=== PATIENT | male | born 1950 | race Caucasian/White ===

== ENCOUNTER 2017-08-13 11:54 | Emergency (ER) | payer OTHER, BC ==
[2017-08-13] MEDS ORDERED: Lidocaine 1% 20 ML MDV INJECT ONE (11:55)
--- NOTE | 2017-08-13 12:31 | EDM.PDOC ---
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 There is minor pain and bleeding. His tetanus vax status is unknown. Right 1-Thumb Pain Score (Numeric/FACES): 0 - Related Data Allergies Allergy/AdvReac Type Severity Reaction Status Date / Time No Known Allergies Allergy Verified 11/20/14 22:56 Home Meds: Home Meds Aspirin 325 mg PO DAILY 08/13/17 [History] Omeprazole 20 mg PO DAILY 08/13/17 [History] atorvaSTATin [Lipitor] 40 mg PO DAILY 08/13/17 [History] Past Medical History Cardiovascular History: Reports: High Cholesterol Gastrointestinal History: Reports: GERD Musculoskeletal History: Reports: Arthritis Neurological History: Reports: CVA - Past Surgical History Cardiovascular Surgical History: Reports: Carotid Stents Social & Family History - Family History Family Medical History: Noncontributory - Tobacco Use Smoking Status *Q: Current Every Day Smoker Years of Tobacco use: 45 - Alcohol Use Days Per Week of Alcohol Use: 0 - Recreational Drug Use Recreational Drug Use: No ED ROS GENERAL - Review of Systems Review Of Systems: ROS reveals no pertinent complaints other than HPI. ED EXAM, SKIN/RASH Exam: See Below Exam Limited By: No Limitations General Appearance: Alert, WD/WN, No Apparent Distress Head: Normocephalic Neck: Normal Inspection, Supple Respiratory/Chest: Lungs Clear Cardiovascular: Regular Rate, Rhythm Back Exam: Normal Inspection Extremities: Normal Range of Motion, Other (flap type 1.5 cm laceration to volar thumb pad) Neurological: Alert, Oriented, CN II-XII Intact, Normal Gait, No Motor/Sensory Deficits Psychiatric: Normal Affect, Normal Mood Skin: Warm, Dry, Other (1.5 cm laceration to L thumb) ED SKIN PROCEDURES - Laceration/Wound Repair Left Distal Ventral Finger Lac/Wound length In cm: 1.5 (volar thumb) Appearance: Subcutaneous, Other (flap type) Distal NVT: Neuro & Vascular Intact, No Tendon Injury Anesthetic Type: Local Local Anesthesia - Lidocaine (Xylocaine): 1% Plain Local Anesthetic Volume: 3cc Skin Prep: Chlorhexidine (Hibiciens) Exploration/Debridement/Repair: Wound Explored, No Foreign Material Found Closed with: Sutures Suture Size: 4-0 # of Sutures: 4 Suture Type: Nylon, Interrupted, Simple Drain Placement: No Sterile Dressing Applied: Nurse Tetanus Status Addressed: Yes Complications: No Course - Vital Signs Text/Narrative:: Patient tolerated procedure well. He was administered a Fluvax and adult DT vaccination before discharge. Last Recorded V/S: Last Vital Signs Temp 36.6 C 08/13/17 12:02 Pulse 74 08/13/17 13:15 Resp 15 08/13/17 13:15 BP 138/72 08/13/17 13:15 Pulse Ox 100 08/13/17 13:15 - Orders/Labs/Meds Orders: Active Orders 24 hr Category Date Time Status Vaccines to be Administered [RC] PER UNIT ROUTINE Care 08/13/17 12:34 Active Meds: Medications Discontinued Medications Generic Name Dose Route Start Last Admin Trade Name Ebonie PRN Reason Stop Dose Admin Influenza Virus Vaccine 60 mcg 08/13/17 12:33 08/13/17 12:47 Fluzone Quad [id number] IM 08/13/17 12:34 60 mcg .ONCE ONE Administration Tetanus/Diphtheria Toxoids 0.5 ml 08/13/17 12:34 08/13/17 13:04 Tenivac IM 08/13/17 12:35 0.5 ml .ONCE ONE Administration Departure - Departure Time of Disposition: 12:40 Disposition: Home, Self-Care 01 Condition: Good Clinical Impression: Laceration of thumb Qualifiers: Encounter type: initial encounter Damage to nail status: without damage Foreign body presence: without foreign body Laterality: left Qualified Code(s): S61.012A - Laceration without foreign body of left thumb without damage to nail , initial encounter - Discharge Information Instructions: Laceration Care, Adult, Wound Infection, [id number] Referrals: PCP,None [Primary Care Provider] - Forms: ED Department Discharge - Problem List & Annotations (1) Laceration of thumb SNOMED Code(s): 337829203 Code(s): S61.019A - LACERATION W/O FOREIGN BODY OF THMB W/O DAMAGE TO NAIL, INIT Status: Acute Annotation/Comment:: Routine wound cares, and suture removal in 10 days. Qualifiers: Encounter type: initial encounter Damage to nail status: without damage Foreign body presence: without foreign body Laterality: left Qualified Code( s): S61.012A - Laceration without foreign body of left thumb without damage to nail, initial encounter - Problem List Review Problem List Initiated/Reviewed/Updated: Yes - My Orders Last 24 Hours: My Active Orders 08/13/17 12:34 Vaccines to be Administered [RC] PER UNIT ROUTINE - Assessment/Plan Last 24 Hours: My Active Orders 08/13/17 12:34 Vaccines to be Administered [RC] PER UNIT ROUTINE Plan: Follow up with PCP.
[2017-08-13] MEDS ORDERED: FLU Vacc QS 2017-18 (36mos UP)/PF 60 MCG/0.5 ML Syringe IM ONE (12:33)
[2017-08-13] MEDS ORDERED: Diphtheria/Tetanus Toxoids,Adult (Td) 0.5 ML SDV IM ONE (12:34)
[2017-08-13 13:37] VITALS: BP 138/72
== END 2017-08-13 13:24 | disposition home or self-care (01) ==
LOC: FB.ED 11:54
DX: S61.012A Laceration without foreign body of left thumb without damage to nail, initial encounter (principal); E78.00 Pure hypercholesterolemia, unspecified; K21.9 Gastro-esophageal reflux disease without esophagitis; F17.210 Nicotine dependence, cigarettes, uncomplicated; Z79.82 Long term (current) use of aspirin; Z79.899 Other long term (current) drug therapy; W45.8XXA Other foreign body or object entering through skin, initial encounter; Y93.89 Activity, other specified; Y99.0 Civilian activity done for income or pay; Z23 Encounter for immunization
CPT/HCPCS: 12001; 90471; 90472; 90686; 90714; 99282; G0008

== ENCOUNTER 2017-08-22 12:29 | Emergency (ER) | payer OTHER, BC ==
--- NOTE | 2017-09-10 17:01 | ER ---
DATE SEEN: 08/22/2017 The patient is status post 9-day laceration to left hand after having experienced a laceration at the [facility]. This was sutured closed by Dr. Boogie. The laceration was 1.5 cm in the left thumb. The wound has healed nicely. Sutures removed. The patient is to follow up with his doctor as needed. Keep clean. DIAGNOSIS: Left thumb laceration, 1.5 cm in length, single-layer closure, healing and wound was fine. /[id number] RODERICK/YANELI
== END 2017-08-22 13:00 | disposition home or self-care (01) ==
LOC: FB.ED 12:29 → EDSTATUS 12:29 → FB.ED 13:00
DX: S61.012D Laceration without foreign body of left thumb without damage to nail, subsequent encounter (principal); X58.XXXD Exposure to other specified factors, subsequent encounter
CPT/HCPCS: 99281

== ENCOUNTER 2024-12-14 09:36 | Day surgery (SDC) | payer BC, MEDICARE, OTHER ==
[2024-12-14] MEDS ORDERED: Midazolam 1 MG/ML 2 ML SDV IV ONE (09:37)
[2024-12-14] MEDS ORDERED: fentaNYL 100 MCG/2 ML SDV IV ONE (09:37)
[2024-12-14] MEDS ORDERED: Lactated Ringers 1,000 ML IV PRN (09:45)
[2024-12-14] MEDS ORDERED: Sodium Chloride 0.9% 10 ML Syringe FLUSH PRN (09:45)
[2024-12-14] MEDS: acetaZOLAMIDE 500 MG Cap.ER PO ONE (11:05)
[2024-12-14 13:47] VITALS: BP 157/72; PULSE 58
== END 2024-12-14 11:32 | disposition home or self-care (01) ==
LOC: FB.SDS 09:36
PROVIDERS: ATTEND Ophthalmology
DX: H40.1112 Primary open-angle glaucoma, right eye, moderate stage (principal); H26.9 Unspecified cataract; I10 Essential (primary) hypertension; E78.5 Hyperlipidemia, unspecified; F17.210 Nicotine dependence, cigarettes, uncomplicated; Z79.899 Other long term (current) drug therapy
CPT/HCPCS: 66991; A9270; J2250; J3010; V2632; 00142; 99100

== ENCOUNTER 2024-12-28 08:07 | Day surgery (SDC) | payer MEDICARE ==
[2024-12-28] MEDS ORDERED: Sodium Chloride 0.9% 10 ML Syringe IV ONE (08:08)
[2024-12-28] MEDS ORDERED: fentaNYL 100 MCG/2 ML SDV IV ONE (08:08)
[2024-12-28] MEDS ORDERED: Midazolam 1 MG/ML 2 ML SDV IV ONE (08:08)
[2024-12-28] MEDS ORDERED: Sodium Chloride 0.9% 10 ML Syringe FLUSH PRN (08:30)
[2024-12-28] MEDS ORDERED: Lactated Ringers 1,000 ML IV PRN (08:30)
[2024-12-28] MEDS: acetaZOLAMIDE 500 MG Cap.ER PO ONE (10:22)
[2024-12-28 11:11] VITALS: BP 155/76; PULSE 61
== END 2024-12-28 10:45 | disposition home or self-care (01) ==
LOC: FB.SDS 08:07
PROVIDERS: ATTEND Ophthalmology
DX: H40.1122 Primary open-angle glaucoma, left eye, moderate stage (principal); H26.9 Unspecified cataract; I10 Essential (primary) hypertension; E78.5 Hyperlipidemia, unspecified; Z79.899 Other long term (current) drug therapy
CPT/HCPCS: 66991; A9270; J2250; J3010; V2632; 00142; 99100